=== PATIENT | male | born 1995 | race Caucasian/White ===

== ENCOUNTER 2017-12-31 22:03 | Emergency (ER) | payer MEDICAID | END 2018-01-01 00:47 | disposition home or self-care (01) | LOC: D.ER 22:03 | DX: R07.89 Other chest pain (principal) ==

== ENCOUNTER 2018-05-30 22:33 | Emergency (ER) | payer SELFPAY ==
[~2018-05-30] VITALS: Ht 180.3 cm; Wt 95.7 kg
[2018-05-30 22:39] VITALS: Ht 180.3 cm; Wt 95.7 kg
[2018-05-30 23:08] LABS: BASOPHILS 0.1 % (0-2); EOSINOPHILS 1.2 % (0-7); HEMATOCRIT 37.2 % (42.0-54.0); HEMOGLOBIN 12.6 g/dL (13.5-17.5); IMMATURE GRANULOCYTES 0.2 % (0-5); LYMPHOCYTES 25.8 % (15-50); MCH 28.6 pg (26.0-34.0); MCHC 33.9 g/dL (31.0-37.0); MCV 84.4 fL (80.0-100.0); MEAN PLATELET VOLUME 9.2 fL (7.4-10.4); MONOCYTES 6.4 % (2-11); NEUTROPHILS 66.3 % (40-80); PLATELET COUNT 216 10x3/uL (130-400); RBC 4.41 10x6/uL (4.20-6.10); RDW 12.9 % (11.5-14.5); WBC 9.2 10x3/uL (4.8-10.8)
[2018-05-30 23:24] LABS: ALBUMIN 3.9 g/dL (3.4-5.0); ALKALINE PHOSPHATASE 82 U/L (46-116); ALT (SGPT) 29 U/L (10-68); BILIRUBIN - TOTAL 0.37 mg/dL (0.2-1.3); CALC OSMOLALITY 281 mosm/kg (275-300); CALCIUM 8.8 mg/dL (8.5-10.1); CARBON DIOXIDE 30.1 mmol/L (21.0-32.0); CHLORIDE - SERUM 106 mmol/L (98-107); CREATININE - SERUM 0.9 mg/dL (0.6-1.3); GLUCOSE 97 mg/dL (74-106); POTASSIUM - SERUM 3.8 mmol/L (3.5-5.1); PROTEIN - SERUM 7.2 g/dL (6.4-8.2); SODIUM 142 mmol/L (136-145); UREA NITROGEN 11 mg/dL (7-18); eGFR NON AFRICAN AMERICAN > 90 mL/min (90-120)
[2018-05-30 23:32] LABS: APPEARANCE HAZY (CLEAR); COLOR DK YELLOW (YELLOW); SPECIFIC GRAVITY 1.025 (1.005-1.020)
[2018-05-30 23:33] LABS: BILIRUBIN NEGATIVE (NEGATIVE); GLUCOSE NEGATIVE (NEGATIVE); KETONE NEGATIVE (NEGATIVE); NITRITE NEGATIVE (NEGATIVE); PH 5.5 (5.0-6.0); PROTEIN NEGATIVE (NEGATIVE); UROBILINOGEN NORMAL (NORMAL)
[2018-05-30 23:54] VITALS: BP 188/54
== END 2018-05-30 23:55 | disposition home or self-care (01) ==
LOC: D.ER 22:33
PROVIDERS: Emergency Medicine
DX: R53.1 Weakness (principal); R00.1 Bradycardia, unspecified